=== PATIENT | male | born 1960 | race Caucasian/White ===

== ENCOUNTER 2017-02-19 10:07 | Inpatient (IN) | payer OTHER ==
[~2017-02-19] VITALS: Ht 180.3 cm; Wt 120.9 kg
[2017-02-19 11:23] LABS: RED BLOOD COUNT 5.42 M/UL (4.20-5.50); WHITE BLOOD COUNT 6.8 K/UL (4.5-11.0)
[2017-02-19 11:44] LABS: BUN/CREATININE RATIO 17 (0-10)
[2017-02-20] MEDS ORDERED: CHANTIX1 MG PO (07:09)
[2017-02-20] MEDS ORDERED: LASIX20 MG PO (07:09)
[2017-02-20] MEDS ORDERED: HYDROCHLOROTHIA25 MG PO (07:10)
[2017-02-20] MEDS ORDERED: LISINOPRIL40 MG PO (07:10)
[2017-02-20] MEDS ORDERED: DICLOFENAC SODI75 MG PO (07:10)
[2017-02-20] MEDS ORDERED: NORVASC 5 MG TAB5 MG PO (07:10)
[2017-02-20] MEDS ORDERED: NEURONTIN800 MG PO (07:11)
[2017-02-20] MEDS ORDERED: LEXAPRO10 MG PO (07:11)
[2017-02-20] MEDS ORDERED: PERCOCET 10-321 EACH PO (07:11)
[2017-02-20] MEDS ORDERED: PRAVASTATIN SOD40 MG PO (07:12)
[2017-02-20] MEDS ORDERED: ZANAFLEX4 MG PO (07:12)
[2017-02-20] MEDS ORDERED: GLUCOPHAGE1000 MG PO (07:12)
[2017-02-20] MEDS ORDERED: ELAVIL 50 MG TA50 MG PO (07:12)
[2017-02-20 07:38] LABS: BUN/CREATININE RATIO 24 (0-10)
[2017-02-21 04:06] LABS: HEMOGLOBIN 14.2 gm/dl (14.0-17.5); RED BLOOD COUNT 5.59 M/UL (4.20-5.50); WHITE BLOOD COUNT 7.8 K/UL (4.5-11.0)
[2017-02-21 04:20] LABS: BUN/CREATININE RATIO 22 (0-10)
[2017-02-23 05:19] LABS: HEMOGLOBIN 14.3 gm/dl (14.0-17.5); RED BLOOD COUNT 5.62 M/UL (4.20-5.50)
[2017-02-23 05:23] LABS: WHITE BLOOD COUNT 5.8 K/UL (4.5-11.0)
[2017-02-23 05:38] LABS: BUN/CREATININE RATIO 29 (0-10)
--- NOTE | 2017-02-23 12:30 | NUR ---
Nasal swab for [facility] Resp Panel PCR to lab.
[2017-02-23 12:39] LABS: BORDETELLA PERTUSSIS Not Detected (Negative); CHLAMYDOPHLA PNEUMONIAE Not Detected (Negative); CORONAVIRUS HKU1 Not Detected (Negative); CORONAVIRUS NL63 Not Detected (Negative); CORONAVIRUS OC43 Not Detected (Negative); CORONOAVIRUS 229E Not Detected (Negative); HUMAN METAPNEUMOVIRUS Not Detected (Negative); HUMAN RHINOVIRUS/ENTEROVIRUS Not Detected (Negative); INFLUENZA A Not Detected (Negative); INFLUENZA A H-1-2009 Not Detected (Negative); INFLUENZA A H1 Not Detected (Negative); INFLUENZA A H3 Not Detected (Negative); INFLUENZA B Not Detected (Negative); MYCOPLASMA PNEUMONIAE Not Detected (Negative); PARAINFLUENZA VIRUS 1 Not Detected (Negative); PARAINFLUENZA VIRUS 2 Not Detected (Negative); PARAINFLUENZA VIRUS 3 Not Detected (Negative); PARAINFLUENZA VIRUS 4 Not Detected (Negative); RESPIRATORY SYNCYTIAL VIRUS Not Detected (Negative)
--- NOTE | 2017-02-24 05:08 | NUR ---
02/23/17 0330 PT AWAKE. ASKING FOR CPAP TO BE TAKEN OFF. ASKING FOR HIS PAIN MED. 0340 PERCOCETS GIVEN. PT REQUESTS TO SIT IN CHAIR FOR A WHILE. ASSISTED TO CHAIR AT BEDSIDE AND FEET ELEVATED ON STOOL AND PILLOW. 0430 PT DESATING, DOZING IN CHAIR WITH O2 CANNULA IN MOUTH, 0450 RELUCTANTLY AGREED TO GET BACK IN BED AND PUT CPAP BACK ON FOR 2 HOURS. HAD BEEN DESATING WHILE SITTING IN CHAIR EVEN WHILE AWAKE. 0505 IN BED WITH CPAP IN PLACE. SPO2 AT 95% PT IS DOZING
[2017-02-24 06:05] LABS: HEMOGLOBIN 14.1 gm/dl (14.0-17.5); RED BLOOD COUNT 5.61 M/UL (4.20-5.50); WHITE BLOOD COUNT 5.8 K/UL (4.5-11.0)
[2017-02-24 06:36] LABS: BUN/CREATININE RATIO 37 (0-10)
--- NOTE | 2017-02-25 02:56 | NUR ---
02/24/17 2330 PT IS VERY AGGITATED. MULTIPLE ATTEMPTS TO DISTRACT HIM. UP TO THE BATHROOM FOR BM. LINENS CHANGED. PATIENT BATHED 02/25/17 0055 ZANAFLEX GIVEN FOR LEG PAIN. PT STATES "I'M JUST NERVOUS" LIGHTS TURNED DOWN, TV TURNED DOWN, 02/25/[address] FITZGERALD NOTIFIED OF PT DISTRESS. NEW ORDER REC'D. ATIVAN 1MG IV GIVEN. 02/25/[address] DOYLE BEEPED 02/25/[address] DOYLE HERE EVALUATING PT. 02/25/17 0220 SEROQUEL 25MG PO GIVEN. PT IS STILL IN CONSTANT STATE OF AGGITATION. MULTIPLE ATTEMPTS BY DIFFERENT RNS AND HIS TO CALM HIM. 02/25/17 0320 ATTEMPTING TO GET OOB. REFUSING TO WEAR CPAP AT ALL. AND RNS REMAINING AT BEDSIDE ENTIRE TIME. UNABLE TO BE LEFT ALONE.
--- NOTE | 2017-02-25 04:54 | NUR ---
02/25/17 0500 PT HAS BEEN CONTINOUSLY MOVING, RESTLESS, UP AND DOWN OUT OF BED DESPITE BED ALARM, AT BEDSIDE IS UNABLE TO KEEP HIM IN THE BED, ATTEMPTS FOR DISTRACTION, ALTERED ENVIORNMENT, ASSISTED THE BR FOR BM. GIVEN SIPS OF WATER. ATTEMPT TO ENGAGE IN CONVERSATIONS. ALL HAVE NOT WORKED. DENIES HIM USING ANY RECREATIONAL MEDS, OR ETOH. SHE STATES HE DOES THIS AT HOME AND HAS FOR SEVERAL YEARS. PERCOCET 2 TABS GIVEN FOR C/O LEGS HURTING
[2017-02-25 11:25] LABS: BUN/CREATININE RATIO 18 (0-10)
--- NOTE | 2017-02-26 00:51 | NUR ---
02/25/171934 HALDOL 2MG PO GIVEN ALONG WITH PERCOCET 10MG, FOR AGGITATION AND C/O "i NEED MY PAIN MED". 2009 PT WILL LAY IN BED THEN "HAVE TO GET UP". NEEDS TO PEE, WANTS A DRINK OF WATER, WANTS SOMETHING TO EAT. 2029 GIVEN BANANA TO EAT 2099 GIVEN SUGAR FREE PUDDING, PEANUT BUTTER AND CRACKERS. "I'M HUNGRY" CONTINUES TO VERY RESTLESS 2131 VALIUM 5 MG PO GIVEN, ALSO "MY SLEEPING PILL" CLONAZEPAM 0.5MG. 2149 "I HAVE TO GET UP. I HAVE TO PEE. I NEED SOME COFFEE" 2204 ALSLEEP, WITH BIPAP ON. 2249 AWAKE. " I NEED SOMETHING TO EAT" GIVEN A PIECE OF PIZZA. REFUSING BIPAP NOW. "IT ELLI ME" HIG LORIN NC BACK ON. 02/26/17 0026 REMAINS AWAKE. MAKING SEVERAL PHONE CALLS ON CELL PHONE. INFORMED HIM OF WHAT TIME IT IS. "THEY'RE UP." HALDOL 2MG PO GIVEN. 0105 OOB TO CHAIR AT BEDSIDE. PT HAS BEEN AWAKE SINCE 0330 ON 02/24/17.
--- NOTE | 2017-02-26 01:47 | NUR ---
02/26/17 0115 ATTEMPTING TO GO TO SLEEP ON COUCH. 0130 BACK UP SITTING ON SIDE OF BED. "CAN'T SLEEP. GOT TOO MUCH ON MY MIND" 0150 BACK INTO BED
--- NOTE | 2017-02-26 03:13 | NUR ---
02/26/17 0245 PERCOCET 10MG AND AMBIEN 5MG PO. V/S DONE, LIGHTS TURNED OUT, TV OFF RUBBED HIS BACK. INSTRUCTED PT HE WAS GOING TO HAVE TO TRY TO MAKE HIS MIND UP TO GO TO SLEEP. 0300 BACK UP TO VOID. PT'S LEGS HAVE NOT STOPPED MOVING THE ENTIRE HE HAS BEEN LAYING IN THE BED THE ENTIRE SHIFT. INSTRUCTED TO LAY BACK DOWN. WARM BALNKET APPLIED TO BACK AND SHOULDERS.
--- NOTE | 2017-02-26 03:55 | NUR ---
02/26/17 0330 PT IS SLEEPING
--- NOTE | 2017-02-26 04:51 | NUR ---
02/26/17 0450 AWAKE, UP TO VOID. REFFUSING TO GO BACK TO SLEEP. PT CALLING . SHE WON'T COME TO HIM-TIRED.
[2017-02-26 07:26] LABS: HEMOGLOBIN 13.9 gm/dl (14.0-17.5); RED BLOOD COUNT 5.66 M/UL (4.20-5.50)
[2017-02-26 07:27] LABS: WHITE BLOOD COUNT 4.2 K/UL (4.5-11.0)
[2017-02-26 07:49] LABS: BUN/CREATININE RATIO 29 (0-10)
[2017-02-27 04:21] LABS: BUN/CREATININE RATIO 35 (0-10)
[2017-02-27] MEDS ORDERED: ZYVOX 600 MG T600 MG PO (13:12)
[2017-02-27] MEDS ORDERED: LOPRESSOR50 MG PO (13:13)
[2017-02-27] MEDS ORDERED: PREDNISONE20 MG PO (13:16)
[2017-02-27] MEDS ORDERED: SPIRIVA HANDIH18 MCG INH (13:18)
[2017-02-27] MEDS ORDERED: VENTOLIN/PROVE0.5 ML INH (13:21)
[2017-02-27] MEDS ORDERED: REQUIP0.25 MG PO (13:23)
== END 2017-02-27 14:46 | disposition home or self-care (01) | DRG 291 ==
LOC: ER1 10:07 → ZEROF 13:54 → PROG CARE 13:54
PROVIDERS: Hospitalist; Internal Medicine Critical Care Medicine; Internal Medicine Infectious Disease; Specialist/Technologist Athletic Trainer; ADMIT Family Medicine
DX: I11.0 Hypertensive heart disease with heart failure (principal); J15.212 Pneumonia due to Methicillin resistant Staphylococcus aureus; J96.22 Acute and chronic respiratory failure with hypercapnia; J96.21 Acute and chronic respiratory failure with hypoxia; G93.40 Encephalopathy, unspecified; J44.0 Chronic obstructive pulmonary disease with (acute) lower respiratory infection; J44.1 Chronic obstructive pulmonary disease with (acute) exacerbation; E66.2 Morbid (severe) obesity with alveolar hypoventilation; I50.33 Acute on chronic diastolic (congestive) heart failure; E11.65 Type 2 diabetes mellitus with hyperglycemia; G40.909 Epilepsy, unspecified, not intractable, without status epilepticus; I27.2 Other secondary pulmonary hypertension; G25.81 Restless legs syndrome; T38.0X5A Adverse effect of glucocorticoids and synthetic analogues, initial encounter; G89.29 Other chronic pain; F17.200 Nicotine dependence, unspecified, uncomplicated; R91.1 Solitary pulmonary nodule; F32.9 Major depressive disorder, single episode, unspecified; Z87.442 Personal history of urinary calculi; Z68.37 Body mass index [BMI] 37.0-37.9, adult; Z79.84 Long term (current) use of oral hypoglycemic drugs; Z79.891 Long term (current) use of opiate analgesic; Z79.899 Other long term (current) drug therapy; Z88.0 Allergy status to penicillin; Z88.8 Allergy status to other drugs, medicaments and biological substances; Z82.49 Family history of ischemic heart disease and other diseases of the circulatory system
CPT/HCPCS: ECHO; 36415; 36600; 71010; 71260; 80048; 80053; 82140; 82550; 82553; 82803; 82962; 83036; 83735; 83874; 83880; 84100; 84443; 84484; 85025; 85027; 87070; 87077; 87186; 87205; 87486; 87581; 87633; 87798; 93005; 93306; 94640; 94660; 94664; 96372; 96374; 96375; 96376; 99285; J1335; J1630; J1650; J1815; J1940; J2020; J2060; J2270; J2405; J2920; J2930; J7040; J7050; Q9962

== ENCOUNTER → 2017-03-29 | Outpatient (CLI) | payer OTHER ==
[~2017-03-29] MED LIST: CHANTIX1 MG PO; DICLOFENAC SODI75 MG PO; ELAVIL 50 MG TA50 MG PO; GLUCOPHAGE1000 MG PO; HYDROCHLOROTHIA25 MG PO; LASIX20 MG PO; LEXAPRO10 MG PO; LISINOPRIL40 MG PO; LOPRESSOR50 MG PO; NEURONTIN800 MG PO; NORVASC 5 MG TAB5 MG PO; PERCOCET 10-321 EACH PO; PRAVASTATIN SOD40 MG PO; PREDNISONE20 MG PO; REQUIP0.25 MG PO; SPIRIVA HANDIH18 MCG INH; VENTOLIN/PROVE0.5 ML INH; ZANAFLEX4 MG PO; ZYVOX 600 MG T600 MG PO
== END ==
LOC: HEART 5 10:50
DX: R06.02 Shortness of breath (principal)
CPT/HCPCS: 94060; 94729